=== PATIENT | male | born 1930 | race Asian ===

== ENCOUNTER 2016-06-18 07:19 | Outpatient (CLI) | payer MEDICARE ==
[2016-06-18] MEDS ORDERED: REGADENOSON 0.4 MG/5 ML DISP.SYRIN IVP ONE (08:30)
== END 2016-06-18 23:59 | disposition home or self-care (01) ==
LOC: EDSEX 07:19 → NM 07:19
PROVIDERS: ATTEND Internal Medicine Interventional Cardiology
DX: I25.10 Atherosclerotic heart disease of native coronary artery without angina pectoris (principal)
CPT/HCPCS: 78452; A9502; J2785

== ENCOUNTER 2017-02-04 07:01 | Outpatient (CLI) | payer MEDICARE, OTHER ==
[2017-02-04] MEDS ORDERED: REGADENOSON 0.4 MG/5 ML DISP.SYRIN IVP ONE (08:30)
== END 2017-02-04 23:59 | disposition home or self-care (01) ==
LOC: NM 07:01
PROVIDERS: ATTEND Internal Medicine Interventional Cardiology
DX: I25.10 Atherosclerotic heart disease of native coronary artery without angina pectoris (principal)
CPT/HCPCS: 78452; A9502; J2785